=== PATIENT | female | born 1950 ===

== ENCOUNTER 2019-10-12 11:59 | Outpatient (CLI) | payer OTHER, BC | END 2019-10-12 12:02 | disposition home or self-care (01) | LOC: MAMO-SONO 11:59 | DX: Z12.31 Encounter for screening mammogram for malignant neoplasm of breast (principal); Z87.898 Personal history of other specified conditions; N60.11 Diffuse cystic mastopathy of right breast; N60.12 Diffuse cystic mastopathy of left breast ==

== ENCOUNTER 2019-10-14 09:20 | Outpatient (CLI) | payer OTHER, BC | END 2019-10-14 14:24 | disposition home or self-care (01) | LOC: NUCLEAR 09:20 | DX: M85.851 Other specified disorders of bone density and structure, right thigh (principal) ==